=== PATIENT | male | born 1940 | race Caucasian/White ===

== ENCOUNTER 2016-10-23 16:47 | Inpatient (IN) | payer OTHER, MEDICARE ==
[2016-10-23] MEDS ORDERED: Sodium Chloride 0.9% 10 ML Syringe FLUSH PRN (17:08)
[2016-10-23] MEDS ORDERED: Albuterol/Ipratropium 3.0-0.5 MG/3 ML Neb Soln NEB ONE (17:09)
[2016-10-23] MEDS ORDERED: Levofloxacin/Dextrose 5%-Water 750 MG in Premix Bag 1 BAG IV ONE (17:10)
--- NOTE | 2016-10-23 18:48 | EDM.PDOC ---
ED HPI GENERAL MEDICAL PROBLEM - General Chief Complaint: Respiratory Problem Stated Complaint: SOB Time Seen by Provider: 10/23/16 17:01 Source of Information: Reports: Patient, Family, Provider ([place] [facility]) History Limitations: Reports: No Limitations - History of Present Illness INITIAL COMMENTS - FREE TEXT/NARRATIVE: The patient presents with cough, fever, and shortness of breath. He was sent up from the [place] [facility] for the above symptoms. He has no COPD or emphysema but he does smoke. He has a fever and chills. He has a productive cough. His symptoms have been there for about 1 week but they are worse for the past 2 days. He has no chest pain. He has no abdominal pain, nausea or vomiting. Onset: Gradual Duration: Week(s): (1) Severity: Moderate Improves with: Reports: None Worsens with: Reports: None Associated Symptoms: Reports: Cough, Fever/Chills, Shortness of Breath - Related Data Allergies Allergy/AdvReac Type Severity Reaction Status Date / Time codeine Allergy Severe Itching Verified 10/23/16 16:58 venom-honey bee Allergy Severe Airway Verified 10/23/16 16:58 [bee venom (honey bee)] Tightness Home Meds: Home Meds Lisinopril 40 mg PO DAILY 11/03/13 [History] Tamsulosin [Flomax] 1 cap PO BID 11/03/13 [History] Latanoprost [Xalatan 0.005% Ophth Soln] 2.5 ml EYEBOTH BEDTIME 10/23/16 [History ] Timolol Maleate [Timoptic 0.25% Ophth Soln] 5 ml EYEBOTH BID 10/23/16 [History] Vit A/Vit C/Vit E/Zinc/Copper [Preservision Areds Softgel] 1 cap PO DAILY [History] amLODIPine Besylate [Amlodipine Besylate] 5 mg PO DAILY 10/23/16 [History] atorvaSTATin Calcium [Atorvastatin Calcium] 40 mg PO BEDTIME 10/23/16 [History] Past Medical History HEENT History: Reports: Glaucoma, Impaired Vision Other HEENT History: wears corrective lenses Cardiovascular History: Reports: Hypertension Genitourinary History: Reports: BPH - Past Surgical History Male Surgical History: Reports: None Social & Family History - Tobacco Use Smoking Status *Q: Current Every Day Smoker Years of Tobacco use: 59 Packs/Tins Daily: 0.5 Used Tobacco, but Quit: No Second Hand Smoke Exposure: No - Caffeine Use Caffeine Use: Reports: Coffee - Recreational Drug Use Recreational Drug Use: No ED ROS GENERAL - Review of Systems Review Of Systems: See Below Constitutional: Reports: Fever, Chills HEENT: Reports: No Symptoms Respiratory: Reports: Shortness of Breath, Cough Cardiovascular: Reports: No Symptoms Endocrine: Reports: No Symptoms GI/Abdominal: Reports: No Symptoms : Reports: No Symptoms Musculoskeletal: Reports: No Symptoms Skin: Reports: No Symptoms ED EXAM, GENERAL - Physical Exam Exam: See Below Exam Limited By: No Limitations General Appearance: Alert, No Apparent Distress Ears: Normal External Exam Nose: Normal Inspection Head: Atraumatic, Normocephalic Neck: Normal Inspection Respiratory/Chest: No Respiratory Distress, Decreased Breath Sounds, Wheezing Cardiovascular: Regular Rate, Rhythm, No Edema, No Murmur GI/Abdominal: Soft, Non-Tender, No Organomegaly, No Mass Back Exam: Normal Inspection Extremities: Normal Inspection EKG INTERPRETATION EKG Date: 10/23/16 Time: 16:56 Rhythm: NSR Rate (Beats/Min): 89 [place]: Normal P-Wave: Present QRS: Normal ST-T: Normal QT: Normal Course - Vital Signs Last Recorded V/S: Last Vital Signs Temp 99.5 F 10/23/16 16:53 Pulse 92 10/23/16 16:53 Resp 24 H 10/23/16 16:53 BP 216/85 H 10/23/16 16:53 Pulse Ox 92 L 10/23/16 17:33 - Orders/Labs/Meds Orders: Active Orders 24 hr Category Date Time Status Cardiac Monitoring [RC] . DIRECTED Care 10/23/16 17:08 Active EKG 12 Lead [EKG Documentation Completion] [RC] STAT Care 10/23/16 17:08 Active Oxygen Therapy [RC] PRN Care 10/23/16 17:08 Active Peripheral IV Care [RC] . DIRECTED Care 10/23/16 17:08 Active RT Aerosol Therapy [RC] ASDIRECTED Care 10/23/16 17:09 Active Chest 1V Frontal [CR] Stat Exams 10/23/16 17:08 Taken CBC WITH AUTO DIFF [HEME] Stat Lab 10/23/16 17:50 Results CULTURE BLOOD [BC] Stat Lab 10/23/16 17:50 Received CULTURE BLOOD [BC] Stat Lab 10/23/16 18:10 Received Sodium Chloride 0.9% [Saline Flush] Med 10/23/16 17:08 Active 10 ml FLUSH ASDIRECTED PRN Blood Culture x2 Reflex Set [OM.PC] Stat Oth 10/23/16 17:09 Ordered Peripheral IV Insertion Adult [OM.PC] Stat Ot 10/23/16 17:08 Ordered Medication Orders Sodium Chloride (Saline Flush) 10 ml FLUSH ASDIRECTED PRN PRN Reason: Keep Vein Open Last Admin: 10/23/16 18:16 Dose: 10 ml Labs: Laboratory Tests 10/23/16 10/23/16 10/23/16 Range/Units 17:50 17:50 17:50 WBC 19.71 H (4.23-9.07) K/mm3 RBC 4.61 L (4.63-6.08) M/mm3 Hgb 15.0 (13.7-17.5) gm/L Hct 44.2 (40.1-51.0) % MCV 95.9 H (79.0-92.2) fl MCH 32.5 H (25.7-32.2) pg MCHC 33.9 (32.2-35.5) g/dl RDW Std Deviation 47.1 H (35.1-43.9) fL Plt Count 294 (163-337) K/mm3 MPV 9.3 L (9.4-12.3) fl Neut % (Auto) 83.8 H (34.0-67.9) % Lymph % (Auto) 6.5 L (21.8-53.1) % Centre % (Auto) 8.9 (5.3-12.2) % Eos % (Auto) 0.4 L (0.8-7.0) Baso % (Auto) 0.2 (0.1-1.2) % Neut # (Auto) 16.52 H (1.78-5.38) K/mm3 Lymph # (Auto) 1.29 L (1.32-3.57) K/mm3 Centre # (Auto) 1.75 H (0.30-0.82) K/mm3 Eos # (Auto) 0.08 (0.04-0.54) K/mm3 Baso # (Auto) 0.03 (0.01-0.08) K/mm3 Sodium 141 (136-145) mEq/L Potassium 3.8 (3.5-5.1) mEq/L Chloride 105 (98-107) mEq/L Carbon Dioxide 26 (21-32) mEq/L Anion Gap 13.8 (5-15) BUN 14 (7-18) mg/dL Creatinine 1.2 (0.7-1.3) mg/dL Est Cr Clr Drug Dosing 54.01 mL/min Estimated GFR (MDRD) 59 (>60) mL/min BUN/Creatinine Ratio 11.7 L (14-18) Glucose 119 H (83-115) mg/dL Lactic Acid 1.4 (0.4-2.0) mmol/L Calcium 9.2 (8.5-10.1) mg/dL Total Bilirubin 0.5 (0.2-1.0) mg/dL AST 29 (15-37) U/L ALT 44 (16-63) U/L Alkaline Phosphatase 123 H (46-116) U/L Total Protein 7.4 (6.4-8.2) g/dl Albumin 4.0 (3.4-5.0) g/dl Globulin 3.4 gm/dL Albumin/Globulin Ratio 1.2 (1-2) Meds: Medications Generic Name Dose Route Start Last Admin Trade Name Priyank PRN Reason Stop Dose Admin Sodium Chloride 10 ml 10/23/16 17:08 10/23/16 18:16 Saline Flush FLUSH 10 ml ASDIRECTED PRN Administration Keep Vein Open Discontinued Medications Generic Name Dose Route Start Last Admin Trade Name Priyank PRN Reason Stop Dose Admin Albuterol/Ipratropium 3 ml 10/23/16 17:09 10/23/16 17:33 Duoneb 3.0-0.5 Mg/3 Ml NEB 10/23/16 17:10 3 ml ONETIME ONE Administration Levofloxacin/Dextrose 750 mg/ 150 mls @ 100 mls/hr 10/23/16 17:10 10/23/16 18 :17 Premix IV 10/23/16 18:39 100 mls/hr ONETIME ONE Administration - Re-Assessments/Exams Free Text/Narrative Re-Assessment/Exam: 10/23/16 18:55 I ordered an IV Saline lock, oxygen, CXR, labs, blood culture, duoneb and levaquin. His CXR shows a right perihilar infiltrate. His WBC was elevated to 19.71. His blood sugar was 123. He feels better after the oxygen and breathing treatment. I feel he needs to be admitted. I called Dr Packer and she agreed to the admission. Departure - Departure Time of Disposition: 19:00 Disposition: Admitted As Inpatient 67 Condition: Fair Clinical Impression: Hypoxia Pneumonia Qualifiers: Pneumonia type: due to unspecified organism Laterality: right Lung location: middle lobe of lung Qualified Code(s): J18.1 - Lobar pneumonia, unspecified organism - Discharge Information Referrals: Jaclyn Downs DO [Primary Care Provider] - Forms: ED Department Discharge - My Orders Last 24 Hours: My Active Orders 10/23/16 17:08 Cardiac Monitoring [RC] . DIRECTED EKG 12 Lead [EKG Documentation Completion] [RC] STAT Oxygen Therapy [RC] PRN Peripheral IV Care [RC] . DIRECTED Chest 1V Frontal [CR] Stat Sodium Chloride 0.9% [Saline Flush] 10 ml FLUSH ASDIRECTED PRN Peripheral IV Insertion Adult [OM.PC] Stat 10/23/16 17:09 RT Aerosol Therapy [RC] ASDIRECTED Blood Culture x2 Reflex Set [OM.PC] Stat 10/23/16 17:50 CBC WITH AUTO DIFF [HEME] Stat CULTURE BLOOD [BC] Stat 10/23/16 18:10 CULTURE BLOOD [BC] Stat - Assessment/Plan Last 24 Hours: My Active Orders 10/23/16 17:08 Cardiac Monitoring [RC] . DIRECTED EKG 12 Lead [EKG Documentation Completion] [RC] STAT Oxygen Therapy [RC] PRN Peripheral IV Care [RC] . DIRECTED Chest 1V Frontal [CR] Stat Sodium Chloride 0.9% [Saline Flush] 10 ml FLUSH ASDIRECTED PRN Peripheral IV Insertion Adult [OM.PC] Stat 10/23/16 17:09 RT Aerosol Therapy [RC] ASDIRECTED Blood Culture x2 Reflex Set [OM.PC] Stat 10/23/16 17:50 CBC WITH AUTO DIFF [HEME] Stat CULTURE BLOOD [BC] Stat 10/23/16 18:10 CULTURE BLOOD [BC] Stat
[2016-10-23] MEDS ORDERED: Albuterol/Ipratropium 3.0-0.5 MG/3 ML Neb Soln NEB PRN (20:18)
[2016-10-23] MEDS ORDERED: Temazepam 15 MG Cap PO PRN (20:22)
--- NOTE | 2016-10-23 20:50 | PCM.HP ---
H&P History of Present Illness - General Date of Service: 10/23/16 Admit Problem/Dx: Admission Diagnosis/Problem Admission Diagnosis/Problem Pneumonia Source of Information: Patient, Family, Provider History Limitations: Reports: No Limitations - History of Present Illness Initial Comments - Free Text/Narative: 75 year old male with generalized weakness associated with malaise was seen in the [place] clinic today. He has had a productive He is atobacco smoker.He is a tobacco smoker with at least 59 pack years.cough with chest pain for 1 week. Over the last 1-2 days he has had fever/chills; he denies N/V. The patient is being admitted for CAP. Onset of Symptoms: Reports: Gradual Symptom Onset Date: 10/17/16 Duration of Symptoms: Reports: Day(s):, Getting Worse Location: Reports: Chest Improves with: Reports: Medication Worsens with: Reports: None Associated Symptoms: Reports: Fever/Chills, Malaise, Weakness - Related Data Allergies/Adverse Reactions: Allergies Allergy/AdvReac Type Severity Reaction Status Date / Time codeine Allergy Severe Itching Verified 10/23/16 16:58 venom-honey bee Allergy Severe Airway Verified 10/23/16 16:58 [bee venom (honey bee)] Tightness Home Medications: Home Meds Lisinopril 40 mg PO DAILY 11/03/13 [History] Tamsulosin [Flomax] 1 cap PO BID 11/03/13 [History] Latanoprost [Xalatan 0.005% Ophth Soln] 2.5 ml EYEBOTH BEDTIME 10/23/16 [History ] Timolol Maleate [Timoptic 0.25% Ophth Soln] 5 ml EYEBOTH BID 10/23/16 [History] Vit A/Vit C/Vit E/Zinc/Copper [Preservision Areds Softgel] 1 cap PO DAILY [History] amLODIPine Besylate [Amlodipine Besylate] 5 mg PO DAILY 10/23/16 [History] atorvaSTATin Calcium [Atorvastatin Calcium] 40 mg PO BEDTIME 10/23/16 [History] Past Medical History HEENT History: Reports: Glaucoma, Impaired Vision Other HEENT History: wears corrective lenses Cardiovascular History: Reports: Hypertension Genitourinary History: Reports: BPH - Past Surgical History Male Surgical History: Reports: None Social & Family History - Tobacco Use Smoking Status *Q: Current Every Day Smoker Years of Tobacco use: 59 Packs/Tins Daily: 0.5 Used Tobacco, but Quit: No Second Hand Smoke Exposure: No - Caffeine Use Caffeine Use: Reports: Coffee - Recreational Drug Use Recreational Drug Use: No H&P Review of Systems - Review of Systems: Review Of Systems: See Below General: Reports: Fever, Chills, Malaise, Weakness, Fatigue HEENT: Reports: No Symptoms Pulmonary: Reports: Shortness of Breath, Pleuritic Chest Pain Cardiovascular: Reports: No Symptoms Gastrointestinal: Reports: No Symptoms Genitourinary: Reports: No Symptoms Musculoskeletal: Reports: No Symptoms Skin: Reports: No Symptoms Psychiatric: Reports: No Symptoms Neurological: Reports: No Symptoms Hematologic/Lymphatic: Reports: No Symptoms Immunologic: Reports: No Symptoms Exam - Exam Exam: See Below - Vital Signs Vital Signs: Last Vital Signs Temp 37.7 C 10/23/16 19:57 Pulse 92 10/23/16 16:53 Resp 24 H 10/23/16 19:57 BP 162/64 H 10/23/16 19:57 Pulse Ox 92 L 10/23/16 19:57 Weight: 83.915 kg - Exam Quality Assessment: Supplemental Oxygen General: Alert, Oriented, Cooperative HEENT: Conjunctiva Clear, Nares Patent, Normal Nasal Septum, Pupils Equal, Pupils Reactive, PERRLA Neck: Supple, Trachea Midline Lungs: Normal Respiratory Effort, Decreased Breath Sounds, Rhonchi, Wheezing Cardiovascular: Regular Rate, Regular Rhythm GI/Abdominal Exam: Normal Bowel Sounds, Soft, Non-Tender, No Distention (Male) Exam: Deferred Rectal (Males) Exam: Deferred Back Exam: Normal Inspection Extremities: Normal Inspection, Normal Range of Motion, Normal Capillary Refill Skin: Warm Neurological: Cranial Nerves Intact Neuro Extensive - Mental Status: Alert, Oriented x3, Normal Mood/Affect, Normal Cognition, Memory Intact Neuro Extensive - Motor, Sensory, Reflexes: CN II-XII Intact, Normal Gait Psychiatric: Alert, Normal Affect, Normal Mood - Patient Data Result Diagrams: 10/23/16 17:50 10/23/16 17:50 *Q Meaningful Use (ADM) - VTE *Q VTE Criteria *Q: - Stroke *Q Stroke Criteria *Q: - AMI *Q AMI Criteria *Q: - Problem List (1) Hypoxia SNOMED Code(s): 151747309, 872651426 ICD Code: R09.02 - HYPOXEMIA Status: Acute Current Visit: Yes (2) Pneumonia SNOMED Code(s): 091257648 ICD Code: J18.9 - PNEUMONIA, UNSPECIFIED ORGANISM Status: Acute Current Visit: Yes Qualifiers: Pneumonia type: due to unspecified organism Laterality: right Lung location: middle lobe of lung Qualified Code(s): J18.1 - Lobar pneumonia, unspecified organism (3) Benign prostatic hypertrophy SNOMED Code(s): 738354389, 228087095 ICD Code: N40.0 - BENIGN PROSTATIC HYPERPLASIA WITHOUT LOWER URINRY TRACT SYMP Status: Acute Current Visit: No Problem List Initiated/Reviewed/Updated: Yes Orders Last 24hrs: Active Orders 24 hr Category Date Time Status Patient Status [ADT] Routine ADT 10/23/16 20:32 Active Activity as Tolerated [RC] .Routine Care 10/23/16 20:05 Active Antiembolic Devices [RC] PER UNIT ROUTINE Care 10/23/16 20:19 Active RT Aerosol Therapy [RC] ASDIRECTED Care 10/23/16 20:19 Active Vital Signs [RC] PER UNIT ROUTINE Care 10/23/16 20:05 Active Consult to Occupational Therapy [OT Evaluation and Cons 10/24/16 05:00 Active Treatment] [CONS] Routine Consult to Physical Therapy [PT Evaluation and Cons 10/24/16 08:00 Active Treatment] [CONS] Routine Clear Liquid Diet [DIET] Diet 10/23/16 Dinner Active CXR [Chest 2V] [CR] Routine Exams 10/25/16 08:00 Ordered BMP [BASIC METABOLIC PANEL,BMP] [CHEM] DAILY Lab 10/24/16 05:00 Ordered BMP [BASIC METABOLIC PANEL,BMP] [CHEM] DAILY Lab 10/25/16 05:00 Ordered BMP [BASIC METABOLIC PANEL,BMP] [CHEM] DAILY Lab 10/26/16 05:00 Ordered BMP [BASIC METABOLIC PANEL,BMP] [CHEM] DAILY Lab 10/27/16 05:00 Ordered CBC WITH AUTO DIFF [HEME] DAILY Lab 10/24/16 05:00 Ordered CBC WITH AUTO DIFF [HEME] DAILY Lab 10/25/16 05:00 Ordered CBC WITH AUTO DIFF [HEME] DAILY Lab 10/26/16 05:00 Ordered CBC WITH AUTO DIFF [HEME] DAILY Lab 10/27/16 05:00 Ordered CRP [C-REACTIVE PROTEIN] [CHEM] DAILY Lab 10/24/16 05:00 Ordered CRP [C-REACTIVE PROTEIN] [CHEM] DAILY Lab 10/25/16 05:00 Ordered CRP [C-REACTIVE PROTEIN] [CHEM] DAILY Lab 10/26/16 05:00 Ordered CRP [C-REACTIVE PROTEIN] [CHEM] DAILY Lab 10/27/16 05:00 Ordered CULTURE SPUTUM + SMEAR [RM] Routine Lab 10/23/16 20:20 Uncollected MAGNESIUM [CHEM] DAILY Lab 10/24/16 05:00 Ordered MAGNESIUM [CHEM] DAILY Lab 10/25/16 05:00 Ordered MAGNESIUM [CHEM] DAILY Lab 10/26/16 05:00 Ordered MAGNESIUM [CHEM] DAILY Lab 10/27/16 05:00 Ordered MYCOPLASMA PNEUMONIAE IGM AB [CHEM] Routine Lab 10/23/16 17:50 Received STREP PNEUMONIAE ANTIGEN [MREF] Routine Lab 10/23/16 21:00 Uncollected Albuterol/Ipratropium [DuoNeb 3.0-0.5 MG/3 ML] Med 10/23/16 20:18 Active 3 ml NEB Q6HRRT PRN Latanoprost [Xalatan 0.005% Ophth Soln] Med 10/23/16 21:00 Active 0 ml EYEBOTH BEDTIME Nicotine [Habitrol] Med 10/23/16 21:00 Active 21 mg TRDERM DAILY Rosuvastatin [Crestor] Med 10/24/16 21:00 Active 10 mg PO BEDTIME Tamsulosin [Flomax] Med 10/23/16 21:00 Active 0.4 mg PO BID Temazepam [Restoril] Med 10/23/16 20:22 Active 15 mg PO BEDTIME PRN Timolol Maleate [Timoptic 0.25% Ophth Soln] Med 10/23/16 21:00 Active 0 ml EYEBOTH BID amLODIPine [Norvasc] Med 10/24/16 09:00 Active 5 mg PO DAILY Isolation [COMM] Routine Oth 10/23/16 20:21 Ordered NICK Hose [Antiembolic Hose] [OM.PC] Routine Oth 10/23/16 20:19 Ordered Medication Orders Albuterol/Ipratropium (Duoneb 3.0-0.5 Mg/3 Ml) 3 ml NEB Q6HRRT PRN PRN Reason: Shortness of Breath Amlodipine Besylate (Norvasc) 5 mg PO DAILY KENDRA Latanoprost (Xalatan 0.005% Ophth Soln) 0 ml EYEBOTH BEDTIME KENDRA Nicotine (Habitrol) 21 mg TRDERM DAILY KENDRA Rosuvastatin Calcium (Crestor) 10 mg PO BEDTIME KENDRA Sodium Chloride (Saline Flush) 10 ml FLUSH ASDIRECTED PRN PRN Reason: Keep Vein Open Last Admin: 10/23/16 18:16 Dose: 10 ml Tamsulosin HCl (Flomax) 0.4 mg PO BID KENDRA Temazepam (Restoril) 15 mg PO BEDTIME PRN PRN Reason: Insomnia Timolol Maleate (Timoptic 0.25% Ophth Soln) 0 ml EYEBOTH BID [facility] Assessment/Plan Comment:: Impression: CAP with tobacco dependence COPD Chronic HTN HLD BPH Glaucoma Plan: Clear liquid advance to diet Nebs ATB O2 via NC-->keep sat>92% Sputum Cx Resp Cx Daily labs Home meds Electrolyte replacement Nicotine patch Tobacco cessation DVT/GI prophylaxis
[2016-10-23] MEDS ORDERED: Albuterol 0.083% 2.5 MG/3 ML Neb Soln NEB PRN (20:57)
[2016-10-23] MEDS ORDERED: Lactated Ringers 1,000 ML IV SCH (21:00)
[2016-10-23] MEDS ORDERED: Ondansetron 4 MG/2 ML SDV IVPUSH PRN (21:00)
[2016-10-24] MEDS: Tamsulosin 0.4 MG Cap.ER PO SCH ×3 (00:58→20:58)
[2016-10-24] MEDS: methylPREDNISolone Sodium Succinate 40 MG/1 ML SDV IVPUSH SCH ×2 (00:58→08:47)
[2016-10-24] MEDS: Latanoprost 0.005% Ophth Soln 2.5 ML Bottle EYEBOTH SCH ×2 (00:58→20:59)
[2016-10-24] MEDS: Nicotine 21 MG/24 Hr Patch TRDERM SCH ×3 (00:59→11:27)
[2016-10-24] MEDS: Timolol Maleate 0.25% Ophth Soln 5 ML Bottle EYEBOTH SCH ×3 (01:09→21:06)
[2016-10-24] MEDS: Pantoprazole 40 MG Tab.CR PO SCH (06:17)
--- NOTE | 2016-10-24 07:57 | CR ---
Chest: Portable view of the chest was obtained. Comparison: No previous study. Heart size appears within normal limits for portable technique. Mild tortuosity of the thoracic aorta is seen. Central lung markings are slightly increased most likely chronic. Lungs otherwise are clear. Bony structures are grossly intact. Impression: 1. Nothing acute is suspected on portable chest x-ray. Diagnostic code #2
[2016-10-24] MEDS: amLODIPine 5 MG Tab PO SCH (08:46)
--- NOTE | 2016-10-24 09:25 | PCM.PN ---
- General Info Date of Service: 10/24/16 Admission Dx/Problem (Free Text): Admission Diagnosis/Problem Admission Diagnosis/Problem Pneumonia Subjective Update: Follow Up Functional Status: Reports: Pain Controlled, Tolerating Diet, Ambulating, Urinating. Denies: New Symptoms - Review of Systems General: Denies: Fever, Weakness, Fatigue, Malaise, Chills HEENT: Reports: No Symptoms Pulmonary: Reports: Shortness of Breath, Cough Cardiovascular: Denies: Chest Pain, Palpitations, Dyspnea on Exertion, Edema, Lightheadedness Gastrointestinal: Denies: Abdominal Pain, Nausea, Vomiting Genitourinary: Reports: No Symptoms Musculoskeletal: Reports: No Symptoms Skin: Denies: Cyanosis Neurological: Denies: Confusion, Difficulty Walking, Weakness, Gait Disturbance Psychiatric: Denies: Confusion, Depression, Mood Lability, Anxiety, Agitation, Hallucinations, Suicidal Ideation Systems Review Comment:: No overnight or acute issues. He is feeling much better. His CXR shows no infiltrates. He has no fever. He is still on supplemental O2. - Patient Data Vitals - Most Recent: Last Vital Signs Temp 36.6 C 10/24/16 08:45 Pulse 70 10/24/16 08:45 Resp 20 10/24/16 04:38 BP 125/84 10/24/16 08:46 Pulse Ox 94 L 10/24/16 08:56 Weight - Most Recent: 86.092 kg I&O - Last 24 Hours: Intake & Output 10/23/16 10/24/16 10/24/16 22:59 06:59 14:59 Intake Total 366 Balance 366 Lab Results Last 24 Hours: Laboratory Results - last 24 hr 10/24/16 10/24/16 Range/Units 05:45 05:45 WBC 21.80 H (4.23-9.07) K/mm3 RBC 4.10 L (4.63-6.08) M/mm3 Hgb 13.4 L (13.7-17.5) gm/L Hct 39.3 L (40.1-51.0) % MCV 95.9 H (79.0-92.2) fl MCH 32.7 H (25.7-32.2) pg MCHC 34.1 (32.2-35.5) g/dl RDW Std Deviation 46.5 H (35.1-43.9) fL Plt Count 250 (163-337) K/mm3 MPV 9.9 (9.4-12.3) fl Neut % (Auto) 92.5 H (34.0-67.9) % Lymph % (Auto) 4.8 L (21.8-53.1) % [place] % (Auto) 2.2 L (5.3-12.2) % Eos % (Auto) 0 L (0.8-7.0) Baso % (Auto) 0.1 (0.1-1.2) % Neut # (Auto) 20.18 H (1.78-5.38) K/mm3 Lymph # (Auto) 1.04 L (1.32-3.57) K/mm3 [place] # (Auto) 0.47 (0.30-0.82) K/mm3 Eos # (Auto) 0.00 L (0.04-0.54) K/mm3 Baso # (Auto) 0.02 (0.01-0.08) K/mm3 Manual Slide Review Abnormal smear Sodium 139 (136-145) mEq/L Potassium 4.0 (3.5-5.1) mEq/L Chloride 104 (98-107) mEq/L Carbon Dioxide 22 (21-32) mEq/L Anion Gap 17.0 H (5-15) BUN 16 (7-18) mg/dL Creatinine 1.1 (0.7-1.3) mg/dL Est Cr Clr Drug Dosing 58.92 mL/min Estimated GFR (MDRD) > 60 (>60) mL/min BUN/Creatinine Ratio 14.5 (14-18) Glucose 149 H (83-115) mg/dL Calcium 8.4 L (8.5-10.1) mg/dL Magnesium 1.7 L (1.8-2.4) mg/dl C-Reactive Protein 11.2 H* (<1.0) mg/dL Jony Results Last 24 Hours: Microbiology 10/24/16 02:46 Gram Stain - Final Sputum - Expectorated Med Orders - Current: Current Medications Albuterol (Proventil Neb Soln) 2.5 mg NEB Q4HRRT PRN PRN Reason: Shortness of Breath Albuterol/Ipratropium (Duoneb 3.0-0.5 Mg/3 Ml) 3 ml NEB Q6HRRT PRN PRN Reason: Shortness of Breath Amlodipine Besylate (Norvasc) 5 mg PO DAILY [facility] Last Admin: 10/24/16 08:46 Dose: 5 mg Levofloxacin/Dextrose 750 mg/ (Premix) 150 mls @ 100 mls/hr IV Q24H [facility] Latanoprost (Xalatan 0.005% Ophth Soln) 0 ml EYEBOTH BEDTIME [facility] Last Admin: 10/24/16 00:58 Dose: Not Given Methylprednisolone Sodium Succinate (Solu-Medrol) 40 mg IVPUSH Q12H [facility] Last Admin: 10/24/16 08:47 Dose: 40 mg Nicotine (Habitrol) 21 mg TRDERM DAILY [facility] Last Admin: 10/24/16 08:51 Dose: Not Given Ondansetron HCl (Zofran) 4 mg IVPUSH Q8H PRN PRN Reason: Nausea/Vomiting Pantoprazole Sodium (Protonix) 40 mg PO ACBREAKFAST [facility] Last Admin: 10/24/16 06:17 Dose: 40 mg Rosuvastatin Calcium (Crestor) 10 mg PO BEDTIME [facility] Sodium Chloride (Saline Flush) 10 ml FLUSH ASDIRECTED PRN PRN Reason: Keep Vein Open Last Admin: 10/23/16 18:16 Dose: 10 ml Tamsulosin HCl (Flomax) 0.4 mg PO BID [facility] Last Admin: 10/24/16 08:46 Dose: 0.4 mg Temazepam (Restoril) 15 mg PO BEDTIME PRN PRN Reason: Insomnia Timolol Maleate (Timoptic 0.25% Ophth Soln) 0 ml EYEBOTH BID [facility] Last Admin: 10/24/16 01:09 Dose: Not Given Discontinued Medications Albuterol/Ipratropium (Duoneb 3.0-0.5 Mg/3 Ml) 3 ml NEB ONETIME ONE Stop: 10/23/16 17:10 Last Admin: 10/23/16 17:33 Dose: 3 ml Levofloxacin/Dextrose 750 mg/ (Premix) 150 mls @ 100 mls/hr IV ONETIME ONE Stop: 10/23/16 18:39 Last Admin: 10/23/16 18:17 Dose: 100 mls/hr Lactated Ringer's (Ringers, Lactated) 1,000 mls @ 100 mls/hr IV ASDIRECTED KENDRA Stop: 10/24/16 06:59 Last Admin: 10/24/16 00:57 Dose: 100 mls/hr - Exam Quality Assessment: Supplemental Oxygen General: Alert, Oriented, Cooperative, No Acute Distress HEENT: Pupils Equal, Pupils Reactive, EOMI, Mucous Membr. Moist/[place] Neck: Supple, Trachea Midline, No JVD, No Thyromegaly Lungs: Normal Respiratory Effort, Decreased Breath Sounds, Wheezing (mild occasional wheezing) Cardiovascular: Regular Rate, Regular Rhythm GI/Abdominal Exam: Normal Bowel Sounds, Soft, Non-Tender, No Organomegaly, No Distention, No Abnormal Bruit, No Mass (Male) Exam: Deferred Back Exam: Normal Inspection, Decreased Range of Motion Extremities: Normal Inspection, Normal Range of Motion, Non-Tender, No Pedal Edema, Normal Capillary Refill Peripheral Pulses: 2+: Dorsalis Pedis (L), Dorsalis Pedis (R) Skin: Warm, Dry, Intact Neurological: No New Focal Deficit Psy/Mental Status: Alert, Normal Affect, Normal Mood - Problem List Review Problem List Initiated/Reviewed/Updated: Yes - Plan Plan:: Assessment/Plan: Acute: Acute Bronchitis from RAD - WBC 19.71 --> 21.80 and CRP 11.2 - CXR shows no infiltrates - He has no PNA in my opinion Probable COPD vs RAD (Reactive Airway Disease) - No formal diagnosis - Inpatient PFT if available - Continue Bronchodilators, IV Steroids, Supplemental O2 and IV ATB Hypomagnesemia - Mg 1.7 - Pharmacy to replete and monitor Tobacco Abuse - Nicotine Patch daily - Counseled on smoking cessation Chronic: HTN HLD BPH Glaucoma Plan: He is clinically much better O2 titrate to wean off if possible Sputum and Blood Cx both negative Advance diet to regular Mycoplasma Ag negative DVT/GI prophylaxis Additional orders as above Possible d/c in AM
[2016-10-24] MEDS ORDERED: Magnesium Oxide 400 MG Tab PO ONE (10:00)
[2016-10-24] MEDS ORDERED: Levofloxacin/Dextrose 5%-Water 750 MG in Premix Bag 1 BAG IV SCH (13:00)
[2016-10-24] MEDS: methylPREDNISolone Sodium Succinate 125 MG/2 ML SDV IVPUSH SCH (21:00)
[2016-10-24] MEDS ORDERED: Rosuvastatin 10 MG Tab PO SCH (21:00)
[2016-10-25] MEDS: Pantoprazole 40 MG Tab.CR PO SCH (05:57)
[2016-10-25] MEDS ORDERED: Lisinopril 20 MG Tab PO SCH (09:00)
[2016-10-25] MEDS: Nicotine 21 MG/24 Hr Patch TRDERM SCH (09:54)
[2016-10-25] MEDS: amLODIPine 5 MG Tab PO SCH (09:54)
[2016-10-25] MEDS: Timolol Maleate 0.25% Ophth Soln 5 ML Bottle EYEBOTH SCH (09:54)
[2016-10-25] MEDS: Tamsulosin 0.4 MG Cap.ER PO SCH (09:54)
[2016-10-25] MEDS: methylPREDNISolone Sodium Succinate 125 MG/2 ML SDV IVPUSH SCH (09:55)
[2016-10-25 09:56] VITALS: BP 137/67
--- NOTE | 2016-10-25 15:38 | PCM.DCSUM1 ---
Discharge Summary - Hospital Course Brief History: This is 75 year old male with generalized weakness associated with malaise was initilly seen in the [facility]. He has had productive cough for 1 week with hx/o 59 pack years of tobacco abuse. Over the last 1-2 days, he has had fever/chills but w/o N/V. He was admitted for medical treatment for CAP. - Discharge Data Discharge Date: 10/25/16 Discharge Disposition: Home, Self-Care 01 Condition: Good - Discharge Diagnosis/Problem(s) (1) COPD exacerbation SNOMED Code(s): 447213013, [id number] ICD Code: J44.1 - CHRONIC OBSTRUCTIVE PULMONARY DISEASE W (ACUTE) EXACERBATION Status: Resolved (2) Bronchitis SNOMED Code(s): 10309905 ICD Code: J40 - BRONCHITIS, NOT SPECIFIED ACUTE OR CHRONIC Status: Acute - Patient Summary/Data Operative Procedure(s) Performed: None Complications: None Consults: Consultations 10/24/16 05:00 Consult to Occupational Therapy [OT Evaluation and Treatment] [CONS] Routine 10/24/16 08:00 Consult to Physical Therapy [PT Evaluation and Treatment] [CONS] Routine Recommended Follow-up Testing/Procedures: None Hospital Course: Patient was primarily admitted for medical management of community-acquired pneumonia. However after reviewing all his diagnostic data to include chest x- ray, we felt patient had no pneumonia but instead acute bronchitis in the setting of newly diagnosed COPD. Patient however was provided with routine respiratory care, supplemental O2, bronchodilators, and intravenous antibiotic to improve his symptoms. The patient did improve on this regimen. On this admission, he underwent inpatient pulmonary function test. He tolerated the procedure well and he was found to have moderate COPD. His hospital course however was uncomplicated. The rest of his chronic medical illness remained stable during this admission. He is now ready for discharge. Patient will be provided hand-held inhalers for treatment of his newly diagnosed COPD. He was advised to quit smoking. He will go home with nicotine patch for nicotine dependence. He will also be discharged with a Medrol Dosepak taper dose. On the day of discharge, RT was present and educated the patient on how and when to use his hand-held inhalers. Patient was further advised to call his primary care doctor for any questions or concerns right after discharge. He expressed understanding and in agreement with the plans as discussed above. All questions were answered. - Patient Instructions Diet: Usual Diet as Tolerated Activity: As Tolerated Driving: Do Not Drive Showering/Bathing: May Shower Notify Provider of: Fever, Increased Pain, Nausea and/or Vomiting Other/Special Instructions: - Please take all home medications as directed. - Quit Smoking is the single most importantly thing that you could do to improve your breathing. - Call or follow up with your family doctor if you have any further questions or concerns right after discharge - Discharge Plan Prescriptions/Med Rec: Ipratropium/Albuterol Sulfate [Combivent Respimat Inhal Badin] 4 gm IH Q4HR PRN #1 aer.w.adap PRN Reason: Shortness Of Breath Azithromycin [IMW: Azithromycin] 250 mg PO ASDIRECTED #6 tab Fluticasone/Salmeterol [Advair Diskus 250-50] 1 puff INH BID #1 inhaler methylPREDNISolone [Medrol] 4 mg PO ASDIRECTED #1 dosepk Nicotine [Nicotine Patch] 1 patch TD DAILY #30 patch.td24 Home Medications: Home Meds Lisinopril 40 mg PO DAILY 11/03/13 [History] Tamsulosin [Flomax] 1 cap PO BID 11/03/13 [History] Latanoprost [Xalatan 0.005% Ophth Soln] 2.5 ml EYEBOTH BEDTIME 10/23/16 [History ] Timolol Maleate [Timoptic 0.25% Ophth Soln] 5 ml EYEBOTH BID 10/23/16 [History] Vit A/Vit C/Vit E/Zinc/Copper [Preservision Areds Softgel] 1 cap PO DAILY [History] amLODIPine Besylate [Amlodipine Besylate] 5 mg PO DAILY 10/23/16 [History] atorvaSTATin Calcium [Atorvastatin Calcium] 40 mg PO BEDTIME 10/23/16 [History] Azithromycin [IMW: Azithromycin] 250 mg PO ASDIRECTED #6 tab 10/24/16 [Rx] Fluticasone/Salmeterol [Advair Diskus 250-50] 1 puff INH BID #1 inhaler [Rx] Ipratropium/Albuterol Sulfate [Combivent Respimat Inhal Badin] 4 gm IH Q4HR PRN #1 aer.w.adap 10/24/16 [Rx] methylPREDNISolone [Medrol] 4 mg PO ASDIRECTED #1 dosepk 10/24/16 [Rx] Nicotine [Nicotine Patch] 1 patch TD DAILY #30 patch.td24 10/25/16 [Rx] Patient Handouts: Smoking Cessation, Tips for Success, [id number], Albuterol ; Ipratropium respiratory inhalation spray (Combivent Respimat), Smoking Hazards , Shortness of Breath, [id number], Fluticasone; Salmeterol inhalation powder, Chronic Obstructive Pulmonary Disease, [id number], Metered Dose Inhaler (No Spacer Used), Metered Dose Inhaler With Spacer, Acute Bronchitis, [id number], Tobacco Use Disorder Referrals: Jaclyn Downs DO [Primary Care Provider] - 11/02/16 1:30 pm (Please follow up with Dr. Downs on at 1330.) - Discharge Summary/Plan Comment DC Time >30 min.: Yes (45min) Discharge Summary/Plan Comment: Discharge to Home - General Info Date of Service: 10/25/16 Admission Dx/Problem (Free Text: Admission Diagnosis/Problem Admission Diagnosis/Problem Pneumonia Subjective Update: Follow Up Functional Status: Reports: Pain Controlled, Tolerating Diet, Ambulating, Urinating. Denies: New Symptoms - Review of Systems General: Denies: Fever, Weakness, Fatigue, Malaise, Chills HEENT: Reports: No Symptoms Pulmonary: Reports: Cough. Denies: Shortness of Breath Cardiovascular: Denies: Chest Pain Gastrointestinal: Denies: Abdominal Pain, Nausea, Vomiting Genitourinary: Reports: No Symptoms Musculoskeletal: Reports: No Symptoms Skin: Denies: Cyanosis Neurological: Denies: Confusion, Difficulty Walking, Weakness, Gait Disturbance Psychiatric: Denies: Depression, Anxiety, Agitation, Hallucinations - Patient Data Vitals - Most Recent: Last Vital Signs Temp 36.1 C 10/25/16 07:56 Pulse 74 10/25/16 07:56 Resp 20 10/25/16 07:56 BP 137/67 10/25/16 09:54 Pulse Ox 96 10/25/16 07:56 Weight - Most Recent: 86.636 kg I&O - Last 24 hours: Intake & Output 10/25/16 10/25/16 10/25/16 06:59 14:59 22:59 Intake Total 500 240 Output Total 1500 Balance -1000 240 Lab Results - Last 24 hrs: Laboratory Results - last 24 hr 10/25/16 10/25/16 Range/Units 05:32 05:32 WBC 22.65 H (4.23-9.07) K/mm3 RBC 4.05 L (4.63-6.08) M/mm3 Hgb 13.3 L (13.7-17.5) gm/L Hct 39.0 L (40.1-51.0) % MCV 96.3 H (79.0-92.2) fl MCH 32.8 H (25.7-32.2) pg MCHC 34.1 (32.2-35.5) g/dl RDW Std Deviation 46.2 H (35.1-43.9) fL Plt Count 283 (163-337) K/mm3 MPV 9.6 (9.4-12.3) fl Neut % (Auto) 87.9 H (34.0-67.9) % Lymph % (Auto) 7.3 L (21.8-53.1) % Anderson % (Auto) 4.5 L (5.3-12.2) % Eos % (Auto) 0 L (0.8-7.0) Baso % (Auto) 0.0 L (0.1-1.2) % Neut # (Auto) 19.90 H (1.78-5.38) K/mm3 Lymph # (Auto) 1.66 (1.32-3.57) K/mm3 Anderson # (Auto) 1.02 H (0.30-0.82) K/mm3 Eos # (Auto) 0.00 L (0.04-0.54) K/mm3 Baso # (Auto) 0.01 (0.01-0.08) K/mm3 Manual Slide Review Abnormal smear Sodium 139 (136-145) mEq/L Potassium 4.2 (3.5-5.1) mEq/L Chloride 106 (98-107) mEq/L Carbon Dioxide 20 L (21-32) mEq/L Anion Gap 17.2 H (5-15) BUN 22 H (7-18) mg/dL Creatinine 1.1 (0.7-1.3) mg/dL Est Cr Clr Drug Dosing 58.92 mL/min Estimated GFR (MDRD) > 60 (>60) mL/min BUN/Creatinine Ratio 20.0 H (14-18) Glucose 166 H (83-115) mg/dL Calcium 8.6 (8.5-10.1) mg/dL Magnesium 2.0 (1.8-2.4) mg/dl C-Reactive Protein 8.3 H* (<1.0) mg/dL HIMA Results - Last 24 hrs: Microbiology 10/24/16 02:46 Gram Stain - Final Sputum - Expectorated Sputum Culture - Preliminary 10/24/16 04:30 Streptococcus pneumoniae Antigen (M - Final Urine Med Orders - Current: Current Medications Discontinued Medications Albuterol (Proventil Neb Soln) 2.5 mg NEB Q4HRRT PRN PRN Reason: Shortness of Breath Last Admin: 10/24/16 14:07 Dose: 2.5 mg Albuterol/Ipratropium (Duoneb 3.0-0.5 Mg/3 Ml) 3 ml NEB ONETIME ONE Stop: 10/23/16 17:10 Last Admin: 10/23/16 17:33 Dose: 3 ml Albuterol/Ipratropium (Duoneb 3.0-0.5 Mg/3 Ml) 3 ml NEB Q6HRRT PRN PRN Reason: Shortness of Breath Amlodipine Besylate (Norvasc) 5 mg PO DAILY [facility] Last Admin: 10/25/16 09:54 Dose: 5 mg Levofloxacin/Dextrose 750 mg/ (Premix) 150 mls @ 100 mls/hr IV ONETIME ONE Stop: 10/23/16 18:39 Last Admin: 10/23/16 18:17 Dose: 100 mls/hr Lactated Ringer's (Ringers, Lactated) 1,000 mls @ 100 mls/hr IV ASDIRECTED KENDRA Stop: 10/24/16 06:59 Last Admin: 10/24/16 00:57 Dose: 100 mls/hr Levofloxacin/Dextrose 750 mg/ (Premix) 150 mls @ 100 mls/hr IV Q24H [facility] Last Admin: 10/24/16 13:49 Dose: 100 mls/hr Latanoprost (Xalatan 0.005% Ophth Soln) 0 ml EYEBOTH BEDTIME [facility] Last Admin: 10/24/16 20:59 Dose: 1 drop Lisinopril (Prinivil) 40 mg PO DAILY [facility] Last Admin: 10/25/16 09:54 Dose: 40 mg Magnesium Oxide (Magnesium Oxide) 800 mg PO ONETIME ONE Stop: 10/24/16 10:01 Last Admin: 10/24/16 09:58 Dose: 800 mg Magnesium Sulfate (Pharmacy To Dose - Magnesium Replacement) 1 dose .XX ASDIRECTED [facility] Methylprednisolone Sodium Succinate (Solu-Medrol) 40 mg IVPUSH Q12H [facility] Last Admin: 10/24/16 08:47 Dose: 40 mg Methylprednisolone Sodium Succinate (Solu-Medrol) 60 mg IVPUSH Q12H [facility] Last Admin: 10/25/16 09:55 Dose: 60 mg Nicotine (Habitrol) 21 mg TRDERM DAILY [facility] Last Admin: 10/25/16 09:54 Dose: 21 mg Ondansetron HCl (Zofran) 4 mg IVPUSH Q8H PRN PRN Reason: Nausea/Vomiting Pantoprazole Sodium (Protonix) 40 mg PO ACBREAKFAST [facility] Last Admin: 10/25/16 05:57 Dose: 40 mg Potassium Chloride (Pharmacy To Dose - Potassium Replacement) 1 dose .XX ASDIRECTED [facility] Rosuvastatin Calcium (Crestor) 10 mg PO BEDTIME [facility] Last Admin: 10/24/16 20:58 Dose: 10 mg Sodium Chloride (Saline Flush) 10 ml FLUSH ASDIRECTED PRN PRN Reason: Keep Vein Open Last Admin: 10/23/16 18:16 Dose: 10 ml Tamsulosin HCl (Flomax) 0.4 mg PO BID [facility] Last Admin: 10/25/16 09:54 Dose: 0.4 mg Temazepam (Restoril) 15 mg PO BEDTIME PRN PRN Reason: Insomnia Last Admin: 10/24/16 23:13 Dose: 15 mg Timolol Maleate (Timoptic 0.25% Ophth Soln) 0 ml EYEBOTH BID [facility] Last Admin: 10/25/16 09:54 Dose: 5 ml - Exam Quality Assessment: Denies: Supplemental Oxygen General: Reports: Alert, Oriented, Cooperative, No Acute Distress HEENT: Reports: Pupils Equal, Pupils Reactive, EOMI, Mucous Membr. Moist/[place] Neck: Reports: Supple, Trachea Midline, No JVD, No Thyromegaly Lungs: Reports: Clear to Auscultation, Normal Respiratory Effort Cardiovascular: Reports: Regular Rate, Regular Rhythm GI/Abdominal Exam: Normal Bowel Sounds, Soft, Non-Tender, No Organomegaly, No Distention, No Abnormal Bruit, No Mass (Male) Exam: Deferred Rectal (Males) Exam: Deferred Back Exam: Reports: Normal Inspection, Decreased Range of Motion Extremities: Normal Inspection, Normal Range of Motion, Non-Tender, No Pedal Edema, Normal Capillary Refill Skin: Reports: Warm, Dry, Intact Neurological: Reports: No New Focal Deficit Psy/Mental Status: Reports: Alert, Normal Affect, Normal Mood *Q Meaningful Use (DIS) - VTE *Q VTE Criteria *Q: - Stroke *Q Stroke Criteria *Q: - AMI *Q AMI Criteria *Q:
== END 2016-10-25 12:16 | disposition home or self-care (01) | DRG 192 ==
LOC: JD.ED 16:47 → UNDOADMIN 19:50 → JD.MS 19:50 → UNDODISIN 10-25 12:16
PROVIDERS: ADMIT Internal Medicine Cardiovascular Disease; ATTEND Internal Medicine Cardiovascular Disease
DX: J18.9 Pneumonia, unspecified organism (principal); J44.0 Chronic obstructive pulmonary disease with (acute) lower respiratory infection; J20.9 Acute bronchitis, unspecified; R09.02 Hypoxemia; H54.7 Unspecified visual loss; E83.42 Hypomagnesemia; I10 Essential (primary) hypertension; N40.0 Benign prostatic hyperplasia without lower urinary tract symptoms; E78.5 Hyperlipidemia, unspecified; H40.9 Unspecified glaucoma; F17.210 Nicotine dependence, cigarettes, uncomplicated; Z88.5 Allergy status to narcotic agent; Z91.030 Bee allergy status; Z79.899 Other long term (current) drug therapy
CPT/HCPCS: 36415; 71010; 80053; 83605; 85025; 86738; 87040 ×2; 93005; 94664; 96365; 96366; 99285; J1956; J7050; 80048; 83735; 86140; 87070; 87205; 87899; 94060; 97161-GP; 97165-GO; A9270-GY; J2920; J2930; J7120

== ENCOUNTER 2020-04-01 09:28 | Emergency (ER) | payer OTHER, MEDICARE ==
[2020-04-01 09:42] VITALS: BP 170/95; PULSE 59
[2020-04-01] MEDS ORDERED: Sodium Chloride 0.9% 10 ML Syringe FLUSH PRN ×2 (09:58→10:47)
--- NOTE | 2020-04-01 10:03 | EDM.PDOC ---
ED HPI GENERAL MEDICAL PROBLEM - General Chief Complaint: Chest Pain Stated Complaint: CHE[facility] Time Seen by Provider: 04/01/20 09:49 Source of Information: Reports: Patient, RN Notes Reviewed - History of Present Illness INITIAL COMMENTS - FREE TEXT/NARRATIVE: 79 yr old male with hx of chest discomfort L chest and L lat chest that comes and goes for about the last 6 weeks. Occasional pain with deep breathing. hx of COPD. Occasionally short of breath but not at this time. No recent cough, fever or chills. No abd pain, nausea or vomiting. - Related Data Allergies Allergy/AdvReac Type Severity Reaction Status Date / Time codeine Allergy Severe Itching Verified 10/23/16 16:58 venom-honey bee Allergy Severe Airway Verified 10/23/16 16:58 [bee venom (honey bee)] Tightness Home Meds: Home Meds Lisinopril 40 mg PO DAILY 11/03/13 [History] Tamsulosin [Flomax] 1 cap PO BID 11/03/13 [History] Latanoprost [Xalatan 0.005% Ophth Soln] 2.5 ml EYEBOTH BEDTIME 10/23/16 [History] Timolol Maleate [Timoptic 0.25% Ophth Soln] 5 ml EYEBOTH BID 10/23/16 [History] Vit A/Vit C/Vit E/Zinc/Copper [Preservision Areds Softgel] 1 cap PO DAILY 10/23/16 [History] amLODIPine Besylate [Amlodipine Besylate] 5 mg PO DAILY 10/23/16 [History] atorvaSTATin Calcium [Atorvastatin Calcium] 40 mg PO BEDTIME 10/23/16 [History] Azithromycin [IMW: Azithromycin] 250 mg PO ASDIRECTED #6 tab 10/24/16 [Rx] Fluticasone/Salmeterol [Advair Diskus 250-50] 1 puff INH BID #1 inhaler 10/24/16 [Rx] Ipratropium/Albuterol Sulfate [Combivent Respimat 20-100 Mcg] 4 gm IH Q4HR PRN #1 aer.w.adap 10/24/16 [Rx] methylPREDNISolone [Medrol] 4 mg PO ASDIRECTED #1 dosepk 10/24/16 [Rx] Nicotine [Nicotine Patch] 1 patch TD DAILY #30 patch.td24 10/25/16 [Rx] Past Medical History HEENT History: Reports: Glaucoma, Impaired Vision Other HEENT History: wears corrective lenses Cardiovascular History: Reports: Hypertension Gastrointestinal History: Reports: GERD Genitourinary History: Reports: BPH - Past Surgical History Male Surgical History: Reports: None Social & Family History - Family History Respiratory: Reports: Other (See Below) Other Respiratory Family Hisory: Dad had emphyzema GI: Reports: Other (See Below) Other GI Family History: Ulcers : Reports: Other (See Below) Other Family History: BPH Endocrine/Metabolic: Reports: Other (See Below) Other Endocrine/Metabolic Family History: Diabetes, unsure of type 1 or 2 Oncologic: Reports: Lung - Tobacco Use Tobacco Use Status *Q: Former Tobacco User Used Tobacco, but Quit: Yes Month/Year Tobacco Last Used: 11/12/2016 - Caffeine Use Caffeine Use: Reports: Coffee Caffeine Use Comment: Per patient he has about 4 cups per day - Recreational Drug Use Recreational Drug Use: No ED ROS GENERAL - Review of Systems Review Of Systems: See Below Constitutional: Denies: Fever, Chills, Diaphoresis HEENT: Reports: No Symptoms Respiratory: Reports: Shortness of Breath, Pleuritic Chest Pain Cardiovascular: Reports: Chest Pain GI/Abdominal: Denies: Abdominal Pain, Nausea, Vomiting Musculoskeletal: Denies: Leg Pain Skin: Reports: No Symptoms Neurological: Reports: No Symptoms ED EXAM, GENERAL - Physical Exam Exam: See Below General Appearance: Alert, No Apparent Distress Throat/Mouth: Normal Inspection Head: Atraumatic Neck: Supple Respiratory/Chest: No Respiratory Distress, Lungs Clear, Normal Breath Sounds, Chest Non-Tender Cardiovascular: Regular Rate, Rhythm GI/Abdominal: Soft, Non-Tender Back Exam: No: CVA Tenderness (L), CVA Tenderness (R) Extremities: Normal Inspection. No: Leg Pain, Increased Warmth, Redness Skin Exam: Warm, Dry, Normal Color #1 Interpretation EKG Date: 04/01/20 Rhythm: NSR Anderson: Normal P-Wave: Present QRS: Normal ST-T: Normal Course - Vital Signs Last Recorded V/S: Last Vital Signs Temp 97.1 F 04/01/20 09:34 Pulse 59 L 04/01/20 09:34 Resp 18 04/01/20 09:34 BP 170/95 H 04/01/20 09:34 Pulse Ox 95 02/18/21 09:34 - Orders/Labs/Meds Labs: Laboratory Tests 04/01/20 04/01/20 04/01/20 Range/Units 09:50 09:50 09:50 WBC 10.38 H (4.23-9.07) K/mm3 RBC 4.41 L (4.63-6.08) M/mm3 Hgb 14.0 (13.7-17.5) gm/dl Hct 42.6 (40.1-51.0) % MCV 96.6 H (79.0-92.2) fl MCH 31.7 (25.7-32.2) pg MCHC 32.9 (32.2-35.5) g/dl RDW Std Deviation 45.1 H (35.1-43.9) fL Plt Count 280 (163-337) K/mm3 MPV 9.7 (9.4-12.3) fl Neut % (Auto) 66.1 (34.0-67.9) % Lymph % (Auto) 20.1 L (21.8-53.1) % Dickinson % (Auto) 12.2 (5.3-12.2) % Eos % (Auto) 1.2 (0.8-7.0) Baso % (Auto) 0.2 (0.1-1.2) % Neut # (Auto) 6.86 H (1.78-5.38) K/mm3 Lymph # (Auto) 2.09 (1.32-3.57) K/mm3 Dickinson # (Auto) 1.27 H (0.30-0.82) K/mm3 Eos # (Auto) 0.12 (0.04-0.54) K/mm3 Baso # (Auto) 0.02 (0.01-0.08) K/mm3 D-Dimer, Quantitative 1.01 H (0.19-0.50) mg/L Sodium 143 (136-145) mEq/L Potassium 3.7 (3.5-5.1) mEq/L Chloride 106 (98-107) mEq/L Carbon Dioxide 25 (21-32) mEq/L Anion Gap 15.7 H (5-15) BUN 15 (7-18) mg/dL Creatinine 1.2 (0.7-1.3) mg/dL Est Cr Clr Drug Dosing 50.73 mL/min Estimated GFR (MDRD) 59 (>60) mL/min BUN/Creatinine Ratio 12.5 L (14-18) Glucose 121 H (83-115) mg/dL Calcium 9.0 (8.5-10.1) mg/dL Total Bilirubin 1.0 (0.2-1.0) mg/dL AST 22 (15-37) U/L ALT 30 (16-63) U/L Alkaline Phosphatase 128 H (46-116) U/L Troponin I < 0.017 (0.00-0.056) ng/mL Total Protein 7.0 (6.4-8.2) g/dl Albumin 3.6 (3.4-5.0) g/dl Globulin 3.4 gm/dL Albumin/Globulin Ratio 1.1 (1-2) Meds: Medications Discontinued Medications Generic Name Dose Route Start Last Admin Trade Name Freq PRN Reason Stop Dose Admin Sodium Chloride 100 mls @ 75 mls/hr 04/01/20 11:00 04/01/20 10:59 Normal Saline IV 75 mls/hr ASDIRECTED KENDRA Administration Iopamidol 100 ml 04/01/20 10:47 04/01/20 10:59 Isovue-370 (76%) IVPUSH 04/01/20 10:48 100 ml ONETIME ONE Administration Sodium Chloride 10 ml 04/01/20 09:58 04/01/20 10:00 Saline Flush FLUSH 10 ml ASDIRECTED PRN Administration Keep Vein Open Sodium Chloride 10 ml 04/01/20 10:47 04/01/20 10:59 Saline Flush FLUSH 10 ml ONETIME PRN Administration IV FLUSH - Re-Assessments/Exams Free Text/Narrative Re-Assessment/Exam: 04/01/20 12:20 CXR showed a large nodular density L upper chest, see Radiologist report for details. D dimer came back elevated at 1.01. CT angio chest done which showed mass within L upper chest that seems to be related to the pleura. House field unit measurements of fluid. Nonspecific for fluid based encapusulated masses or other pleural disease. Pleural biopsy or follow up CT (4 months) recommended to evaluated for stability. See Radiologist report for details. See Radiologist report for details. Discharge instr. as documented. Departure - Departure Time of Disposition: :22 Disposition: Home, Self-Care 01 Condition: Fair Clinical Impression: Nodular radiologic density, Pleurisy Instructions: Pleurisy Referrals: Judi Sales MD [Primary Care Provider] - Forms: ED Department Discharge Additional Instructions: Tylenol 2 to 3 times daily if needed for discomfort. You also may try ice or heat and if that helps continue that as needed. There is a nodular density L upper chest that showed on your CXR today and also on CT of your chest. There is no evidence for blood clots of your lungs. Your heart checked out well. See Dr Sales early next week so she becomes aware of above findings and to help plan/coordinate further evaluation. Sepsis Event Note (ED) - Evaluation Sepsis Screening Result: No Definite Risk
--- NOTE | 2020-04-01 10:28 | CR ---
Chest: Portable view of the chest was obtained. Comparison: Prior chest x-ray of 11/14/17. Heart is enlarged. Mild tortuosity of the thoracic aorta is seen. Large nodular density is noted within the left upper chest measuring 4.3 cm which is not seen on prior chest x-ray. Lungs otherwise are clear. No gross bony abnormality is appreciated. Impression: 1. Large mass within the left upper chest not seen on prior chest x-ray. Recommend contrast enhanced chest CT to further evaluate. 2. Cardiomegaly. 3. Nothing acute is otherwise seen. Diagnostic code #9
[2020-04-01] MEDS ORDERED: Iopamidol 755 Mg/ML 100 ML Bottle IVPUSH ONE (10:47)
[2020-04-01] MEDS ORDERED: Sodium Chloride 0.9% 100 ML IV SCH (11:00)
--- NOTE | 2020-04-01 11:32 | CT ---
CT chest Technique: Multiple axial sections through the chest were obtained. Intravenous contrast was utilized as a pulmonary angiogram protocol. Findings: Pulmonary arteries are well opacified. There are no filling defects being seen to indicate pulmonary embolism. Coronary artery calcification and coronary narrowing is seen. No pericardial thickening is seen. Small hiatal hernia is noted. Calcified gallstones are seen within the gallbladder. Partially visualized cyst is noted within the left kidney measuring 2.4 cm. Thoracic aorta shows no aneurysm. Small lymph nodes are noted within the mediastinum which are believed to be normal. Emphysematous changes are seen within both lungs. There is a mass identified within the left upper chest which appears to be related to the pleura. Uncertain as to etiology if this is a loculated pleural fluid collection or other pleural disease. There are also two smaller pleural-based densities within the left upper chest which have Hounsfield unit measurements of fluid and measure 1.1 cm and 1.0 cm. Mild atelectasis is seen posteriorly within the left lung base adjacent to the pleural effusion. Bone window settings were reviewed which show degenerative change within the spine. No acute osseous abnormality is appreciated. Impression: 1. Pleural-based abnormality within the left upper chest which has Hounsfield unit measurements of fluid. Two other smaller areas of pleural-based nodules are seen within the left upper lung which also appear to represent fluid. These are nonspecific for fluid based encapsulated masses versus other pleural disease. Either pleural biopsy or follow-up chest CT (4 months) is recommended to evaluate for stability. 2. Small left-sided pleural effusion is noted which appears free layering. 3. No findings of pulmonary embolism. 4. Other findings as noted above. Diagnostic code #9
== END 2020-04-01 12:40 | disposition home or self-care (01) ==
LOC: JD.ED 09:28
DX: R09.1 Pleurisy (principal); R93.5 Abnormal findings on diagnostic imaging of other abdominal regions, including retroperitoneum; N40.0 Benign prostatic hyperplasia without lower urinary tract symptoms; Z88.5 Allergy status to narcotic agent; Z91.030 Bee allergy status; Z79.899 Other long term (current) drug therapy; Z87.891 Personal history of nicotine dependence
CPT/HCPCS: 36415; 71045; 71275; 80053; 84484; 85025; 85379; 93005; 99285; Q9967; 93010; 99284

== ENCOUNTER 2020-05-05 11:26 | Emergency (ER) | payer OTHER, MEDICARE ==
[2020-05-05] MEDS ORDERED: Sodium Chloride 0.9% 10 ML Syringe FLUSH PRN (12:15)
[2020-05-05] MEDS ORDERED: Albuterol 6.7 GM Inhaler INH ONE (12:22)
--- NOTE | 2020-05-05 12:22 | EDM.PDOC ---
ED HPI GENERAL MEDICAL PROBLEM - General Chief Complaint: Respiratory Problem Stated Complaint: SOB Time Seen by Provider: 05/05/20 12:03 Source of Information: Reports: Patient, Old Records, RN Notes Reviewed (Vital signs: Pulse of 67 bpm, temperature 97.0 F, respiratory rate 24 breaths/min, blood pressure is 172/86, O2 sats are 96 to 97% on room air) History Limitations: Reports: No Limitations - History of Present Illness INITIAL COMMENTS - FREE TEXT/NARRATIVE: Patient is a 79-year-old male who presents to the ED for the evaluation of his shortness of breath. Patient was seen here on April 01, and had EKG, chest x-ray and a chest CT, and was found to have some pleural abnormalities that he is following up with pulmonology for on May 24. The patient states that he has been having increased shortness of breath, where he gets winded very easily. He thinks he could maybe walk 50 to 100 feet okay but if he walks up any stairs at all, he notes that he gets horribly short of breath. He is having some left- sided chest pain along with this, that seems to be have the same qualities, but has radiated down his left chest from when he was evaluated in mid March. He states that he does have a dry cough, that does make his chest hurt worse. Use some Tylenol for pain management normally at night. He is complaining of some cold sweats however he has had no documented fever. Patient is mildly dyspneic at rest, and I do note some belly breathing apparent. He has not been around anybody that he is known to be sick, and his denies being around anyone that is been sick as well. Left Chest Pain Score (Numeric/FACES): 2 - Related Data Allergies Allergy/AdvReac Type Severity Reaction Status Date / Time codeine Allergy Severe Itching Verified 05/05/20 11:55 venom-honey bee Allergy Severe Airway Verified 05/05/20 11:55 [bee venom (honey bee)] Tightness Home Meds: Home Meds Lisinopril 40 mg PO DAILY 11/03/13 [History] Tamsulosin [Flomax] 1 cap PO BID 11/03/13 [History] Latanoprost [Xalatan 0.005% Ophth Soln] 2.5 ml EYEBOTH BEDTIME 10/23/16 [History] Timolol Maleate [Timoptic 0.25% Ophth Soln] 5 ml EYEBOTH BID 10/23/16 [History] Vit A/Vit C/Vit E/Zinc/Copper [Preservision Areds Softgel] 1 cap PO DAILY 10/23/16 [History] atorvaSTATin Calcium [Atorvastatin Calcium] 40 mg PO BEDTIME 10/23/16 [History] Past Medical History HEENT History: Reports: Cataract, Glaucoma, Impaired Vision (wears corrective lenses) Cardiovascular History: Reports: High Cholesterol, Hypertension Other Cardiovascular History: first degree AV block Respiratory History: Reports: Other (See Below) (pleural mass/nodules/fluid) Gastrointestinal History: Reports: GERD Genitourinary History: Reports: BPH Endocrine/Metabolic History: Reports: Diabetes Mellitus, Type 3c, Obesity/BMI 30+ - Past Surgical History GI Surgical History: Reports: Colonoscopy Social & Family History - Family History Respiratory: Reports: Other (See Below) Other Respiratory Family Hisory: Dad had emphyzema GI: Reports: Other (See Below) Other GI Family History: Ulcers : Reports: Other (See Below) Other Family History: BPH Endocrine/Metabolic: Reports: Other (See Below) Other Endocrine/Metabolic Family History: Diabetes, unsure of type 1 or 2 Oncologic: Reports: Lung - Tobacco Use Tobacco Use Status *Q: Former Tobacco User Used Tobacco, but Quit: Yes Month/Year Tobacco Last Used: 2017 - Caffeine Use Caffeine Use: Reports: Coffee Caffeine Use Comment: Per patient he has about 4 cups per day - Recreational Drug Use Recreational Drug Use: No ED ROS GENERAL - Review of Systems Review Of Systems: Comprehensive ROS is negative, except as noted in HPI. ED EXAM, GENERAL - Physical Exam Exam: See Below Exam Limited By: No Limitations General Appearance: Alert, WD/WN, No Apparent Distress (pt does have heaving breaths at rest, can complete full sentences without difficulty.) Respiratory/Chest: No Respiratory Distress, Decreased Breath Sounds (diffuse on left mainly), Crackles (slight bilaterally, sounds end expiratory), Accessory Muscle Use (slight belly breathing). No: Wheezing Cardiovascular: Normal Peripheral Pulses, Regular Rate, Rhythm, No Edema Peripheral Pulses: 2+: Radial (L), Radial (R) GI/Abdominal: Normal Bowel Sounds, Soft, Non-Tender, No Distention, No Mass Neurological: Alert, Oriented, Normal Cognition, No Motor/Sensory Deficits Psychiatric: Normal Affect, Normal Mood Skin Exam: Warm, Dry, Intact, Normal Color, No Rash #1 Interpretation EKG Date: 05/05/20 Time: 12:24 Rhythm: NSR Rate (Beats/Min): 64 [place]: Normal P-Wave: Present QRS: Normal ST-T: Normal QT: Normal Comparison: No Change EKG Interpretation Comments: No obvious ischemia or acute ST changes noted, reviewed by myself and Dr. Pulido. Course - Vital Signs Last Recorded V/S: Last Vital Signs Temp 97.0 F 05/05/20 11:38 Pulse 67 05/05/20 11:38 Resp 24 H 05/05/20 11:38 BP 172/86 H 05/05/20 11:38 Pulse Ox 95 05/05/20 13:20 - Orders/Labs/Meds Orders: Active Orders 24 hr Category Date Time Status EKG Documentation Completion [RC] STAT Care 05/05/20 12:15 Ordered Peripheral IV Care [RC] . DIRECTED Care 05/05/20 12:15 Ordered RT Post Treatment Assessment [RC] Click to Edit Care 05/05/20 12:22 Ordered RT Pre-Treatment Assessment [RC] Click to Edit Care 05/05/20 12:22 Ordered COVID-19/FLU A+B [MOLEC] Stat Lab 05/05/20 12:16 Ordered Sodium Chloride 0.9% [Saline Flush] Med 05/05/20 12:15 Ordered 10 ml FLUSH ASDIRECTED PRN Peripheral IV Insertion Adult [OM.PC] Stat Oth 05/05/20 12:15 Ordered Medication Orders Sodium Chloride (Sodium Chloride 0.9% 10 Ml Syringe) 10 ml FLUSH ASDIRECTED PRN PRN Reason: Keep Vein Open Last Admin: 05/05/20 12:24 Dose: 10 ml Documented by: RAMSEY Labs: Laboratory Tests 05/05/20 05/05/20 05/05/20 Range/Units 12:20 12:20 12:20 WBC 12.29 H (4.23-9.07) K/mm3 RBC 4.33 L (4.63-6.08) M/mm3 Hgb 13.6 L (13.7-17.5) gm/dl Hct 42.0 (40.1-51.0) % MCV 97.0 H (79.0-92.2) fl MCH 31.4 (25.7-32.2) pg MCHC 32.4 (32.2-35.5) g/dl RDW Std Deviation 45.6 H (35.1-43.9) fL Plt Count 325 (163-337) K/mm3 MPV 9.6 (9.4-12.3) fl Neut % (Auto) 65.7 (34.0-67.9) % Lymph % (Auto) 19.6 L (21.8-53.1) % Wilkin % (Auto) 12.3 H (5.3-12.2) % Eos % (Auto) 2.0 (0.8-7.0) Baso % (Auto) 0.2 (0.1-1.2) % Neut # (Auto) 8.08 H (1.78-5.38) K/mm3 Lymph # (Auto) 2.41 (1.32-3.57) K/mm3 Wilkin # (Auto) 1.51 H (0.30-0.82) K/mm3 Eos # (Auto) 0.24 (0.04-0.54) K/mm3 Baso # (Auto) 0.02 (0.01-0.08) K/mm3 Manual Slide Review Normal smear PT 10.9 (9.7-12.0) SECONDS INR 1.02 APTT 29.4 (21.7-31.4) SECONDS Sodium 141 (136-145) mEq/L Potassium 4.0 (3.5-5.1) mEq/L Chloride 105 (98-107) mEq/L Carbon Dioxide 24 (21-32) mEq/L Anion Gap 16.0 H (5-15) BUN 11 (7-18) mg/dL Creatinine 1.1 (0.7-1.3) mg/dL Est Cr Clr Drug Dosing 53.55 mL/min Estimated GFR (MDRD) > 60 (>60) mL/min BUN/Creatinine Ratio 10.0 L (14-18) Glucose 107 (83-115) mg/dL Calcium 8.9 (8.5-10.1) mg/dL Magnesium 2.1 (1.8-2.4) mg/dl Total Bilirubin 0.8 (0.2-1.0) mg/dL AST 21 (15-37) U/L ALT 23 (16-63) U/L Alkaline Phosphatase 122 H (46-116) U/L Troponin I < 0.017 (0.00-0.056) ng/mL NT-Pro-B Natriuret Pep (0-450) pg/mL Total Protein 6.9 (6.4-8.2) g/dl Albumin 3.3 L (3.4-5.0) g/dl Globulin 3.6 gm/dL Albumin/Globulin Ratio 0.9 L (1-2) 05/05/20 Range/Units 12:20 WBC (4.23-9.07) K/mm3 RBC (4.63-6.08) M/mm3 Hgb (13.7-17.5) gm/dl Hct (40.1-51.0) % MCV (79.0-92.2) fl MCH (25.7-32.2) pg MCHC (32.2-35.5) g/dl RDW Std Deviation (35.1-43.9) fL Plt Count (163-337) K/mm3 MPV (9.4-12.3) fl Neut % (Auto) (34.0-67.9) % Lymph % (Auto) (21.8-53.1) % Wilkin % (Auto) (5.3-12.2) % Eos % (Auto) (0.8-7.0) Baso % (Auto) (0.1-1.2) % Neut # (Auto) (1.78-5.38) K/mm3 Lymph # (Auto) (1.32-3.57) K/mm3 Wilkin # (Auto) (0.30-0.82) K/mm3 Eos # (Auto) (0.04-0.54) K/mm3 Baso # (Auto) (0.01-0.08) K/mm3 Manual Slide Review PT (9.7-12.0) SECONDS INR APTT (21.7-31.4) SECONDS Sodium (136-145) mEq/L Potassium (3.5-5.1) mEq/L Chloride (98-107) mEq/L Carbon Dioxide (21-32) mEq/L Anion Gap (5-15) BUN (7-18) mg/dL Creatinine (0.7-1.3) mg/dL Est Cr Clr Drug Dosing mL/min Estimated GFR (MDRD) (>60) mL/min BUN/Creatinine Ratio (14-18) Glucose (83-115) mg/dL Calcium (8.5-10.1) mg/dL Magnesium (1.8-2.4) mg/dl Total Bilirubin (0.2-1.0) mg/dL AST (15-37) U/L ALT (16-63) U/L Alkaline Phosphatase (46-116) U/L Troponin I (0.00-0.056) ng/mL NT-Pro-B Natriuret Pep 93 (0-450) pg/mL Total Protein (6.4-8.2) g/dl Albumin (3.4-5.0) g/dl Globulin gm/dL Albumin/Globulin Ratio (1-2) Meds: Medications Generic Name Dose Route Start Last Admin Trade Name Freq PRN Reason Stop Dose Admin Sodium Chloride 10 ml 05/05/20 12:15 05/05/20 12:24 Sodium Chloride 0.9% 10 Ml Syringe FLUSH 10 ml ASDIRECTED PRN Administration Keep Vein Open Discontinued Medications Generic Name Dose Route Start Last Admin Trade Name Freq PRN Reason Stop Dose Admin Albuterol 0 gm 05/05/20 12:22 05/05/20 13:19 Albuterol 6.7 Gm Inhaler INH 05/05/20 12:23 2 puff ONETIME ONE Administration - Re-Assessments/Exams Free Text/Narrative Re-Assessment/Exam: 05/05/20 12:23 Patient presents to the ED for his ongoing shortness of breath, for today's p urposes since his chest pain is radiated down his left chest we will go ahead repeat EKG, chest x-ray, get some basic labs and do a COVID-19 screen as well. Patient will be educated on an albuterol MDI for his ongoing SOB. 05/05/20 13:18 Patient labs have been completed, CBC demonstrates modestly elevated white count at 12.29 with 65% neutrophils on the auto differential, metabolic panel essenti ally unremarkable, troponin is undetectably low, BNP is within normal limits. Review of his chest x-ray does demonstrate a rather large left-sided consolidation that appears to be pleural effusion, that is taking up about 50% of his lung field. This is a interval change from April 01. 05/05/20 13:49 Patient's chest x-ray has been read, there is a moderately large left-sided pleural effusion, with increase in the size of the mass appreciated in March, measuring 5.0 cm, in March it measured 4.4 cm. There is another area concerning for possible atelectasis versus pneumonia in the left lung as well, and the heart is slightly enlarged. I have pushed the x-rays to [facility] in [place], for further evaluation, and will call over there to see if they can maybe get him an outpatient appointment sooner, with possible IR intervention. 05/05/20 14:22 The hand expansion envelope maker on-call, Dr. Serna at [facility],sh does not think that the gentleman would necessarily need IR intervention, they do state that it would be okay for general surgery to drain this, but does request a large volume spin down for cytology along with cell counts. I was on the phone with Dr. Casas, and although she does not do thoracentesis, she was with Dr. Potter, and he states that he would feel comfortable doing so in the next few days as outpatient status. I did call over to [facility] and spoke with his nurse, regarding the patient, and she states that she will talk with Dr. Potter when he is done with his surgical case and they will call the gentleman to follow-up. I did also explain the findings with the patient, they verbalized understanding at this time. Departure - Departure Time of Disposition: 14:25 Disposition: Home, Self-Care 01 Condition: Good Clinical Impression: Moderate sized pleural effusion, Mass of left lung - Discharge Information *PRESCRIPTION DRUG MONITORING PROGRAM REVIEWED*: No *COPY OF PRESCRIPTION DRUG MONITORING REPORT IN PATIENT MY: No Instructions: Shortness of Breath, Adult, [place], Pleural Effusion Referrals: Judi Sales MD [Primary Care Provider] - Forms: ED Department Discharge Additional Instructions: You were seen in this ER today for your ongoing shortness of breath. Thorough evaluation demonstrates no issues with your heart, EKG was within normal limits, and your laboratory evaluation was essentially unremarkable. Your COVID screen was negative. Your chest x-ray did demonstrate a moderate left-sided pleural effusion, which is fluid in your lung space taking up area, that is in turn causing you to be short of breath. This fluid can be removed, and your case was discussed with a general surgeon at [facility] by the name of Dr. Potter, his nurse/clinic will be in contact with you to schedule you an appointment to have a thoracentesis done. The clinic will hopefully call you to get this appointment scheduled within the next day or 2 however if you do not hear from them by Sunday, please call the [facility] at [phone] and tell them that you are to see Dr. Potter for thoracentesis and you were seen by Keysha Chun in the [place] [facility] on Sunday. The hand expansion envelope maker in [place] did request that you have a large volume [place] for cytology. Continue the albuterol inhaler, 2 puffs every 4 hours as needed for ongoing feelings of shortness of breath. Please keep your appointment with pulmonology in [place], for May 24. Recommend you call the [place] clinic, either today, or tomorrow morning to make them aware of what is going on and that you need a thoracentesis and will be scheduled for one through the [facility]. Please do not hesitate to return to the ER at any time if symptoms change or worsen. Sepsis Event Note (ED) - Evaluation Sepsis Screening Result: No Definite Risk - Focused Exam Vital Signs: Vital Signs Temp Pulse Resp BP Pulse Ox Pulse Ox 05/05/20 13:20 95 05/05/20 11:38 97.0 F 67 24 H 172/86 H 97 - My Orders Last 24 Hours: My Active Orders 05/05/20 12:15 EKG Documentation Completion [RC] STAT Peripheral IV Care [RC] . DIRECTED Sodium Chloride 0.9% [Saline Flush] 10 ml FLUSH ASDIRECTED PRN Peripheral IV Insertion Adult [OM.PC] Stat 05/05/20 12:16 COVID-19/FLU A+B [MOLEC] Stat 05/05/20 12:22 RT Post Treatment Assessment [RC] Click to Edit RT Pre-Treatment Assessment [RC] Click to Edit - Assessment/Plan Last 24 Hours: My Active Orders 05/05/20 12:15 EKG Documentation Completion [RC] STAT Peripheral IV Care [RC] . DIRECTED Sodium Chloride 0.9% [Saline Flush] 10 ml FLUSH ASDIRECTED PRN Peripheral IV Insertion Adult [OM.PC] Stat 05/05/20 12:16 COVID-19/FLU A+B [MOLEC] Stat 05/05/20 12:22 RT Post Treatment Assessment [RC] Click to Edit RT Pre-Treatment Assessment [RC] Click to Edit
--- NOTE | 2020-05-05 13:28 | CR ---
Chest: 2 views of the chest were obtained. Comparison: Prior chest CT study of 04/01/20 and chest x-ray also performed on 04/01/20. Moderately large left-sided pleural effusion is seen. Left upper lobe mass is seen measuring 5.0 cm in size and previously measured 4.4 cm in size. Areas of parenchymal density are noted within the left upper chest which could represent atelectasis as well as areas of pneumonia. Heart is felt to be somewhat enlarged. Degenerative change is noted within the spine. Impression: 1. Moderately large left-sided pleural effusion. Increased size of mass within left upper chest. 2. Areas of increased density within the left upper chest compatible with atelectasis and difficult to exclude an area of pneumonia. 3. Heart is felt to be slightly enlarged. Diagnostic code #9
[2020-05-05 13:32] LABS: CORONAVIRUS COVID-19 NAA NEGATIVE (NEGATIVE)
[2020-05-05 15:25] VITALS: BP 140/69; PULSE 88
== END 2020-05-05 15:26 | disposition home or self-care (01) ==
LOC: JD.ED 11:26
DX: J90 Pleural effusion, not elsewhere classified (principal); R91.8 Other nonspecific abnormal finding of lung field; I10 Essential (primary) hypertension; E11.9 Type 2 diabetes mellitus without complications; E78.00 Pure hypercholesterolemia, unspecified; E66.9 Obesity, unspecified; N40.0 Benign prostatic hyperplasia without lower urinary tract symptoms; Z68.32 Body mass index [BMI] 32.0-32.9, adult; Z88.5 Allergy status to narcotic agent; Z91.030 Bee allergy status; Z79.899 Other long term (current) drug therapy; Z87.891 Personal history of nicotine dependence
CPT/HCPCS: 0240U; 36415; 71046; 80053; 83735; 83880; 84484; 85025; 85610; 85730; 93005; 94640; 99285; A9270; 93010; 99284